=== PATIENT | female | born 1950 | race Asian ===

== ENCOUNTER 2018-05-23 18:01 | Emergency (ER) | payer OTHER ==
[~2018-05-23 18:01] MED LIST: ALLOPURINOL100 MG PO; ATIVAN0.5 M1 PO; CLONIDINE0.1 M1 PO; METOPROLOL SUCC25 M1 PO; NITROSTAT0.4 MG SL; RENVELA800 M1 PO; SENSIPAR30 M1 PO; ZESTRIL20 MG PO; [UNRECOGNIZED DRUG - OTHER]; [UNRECOGNIZED DRUG - OTHER] PO
[2018-05-23 18:16] VITALS: Ht 162.6 cm
[2018-05-23 19:52] VITALS: BP 195/94
== END 2018-05-23 19:52 | disposition home or self-care (01) ==
LOC: ED 18:01
DX: T82.838A Hemorrhage due to vascular prosthetic devices, implants and grafts, initial encounter (principal); I12.0 Hypertensive chronic kidney disease with stage 5 chronic kidney disease or end stage renal disease; N18.6 End stage renal disease
CPT/HCPCS: J2001

== ENCOUNTER 2018-08-13 14:21 | Emergency (ER) | payer OTHER ==
[2018-08-13 14:34] VITALS: Ht 162.6 cm
[2018-08-13 14:46] LABS: PLATELET COUNT 278 x10^3mcL (130-400)
[2018-08-13 14:49] LABS: RED CELL DISTRIBUTION WIDTH 15.4 % (11.5-14.5)
[2018-08-13 15:19] LABS: BILIRUBIN TOTAL 0.68 mg/dL (0.20-1.00); CALCIUM 9.3 mg/dL (8.5-10.1); CARBON DIOXIDE 29.2 mmol/L (21-32); POTASSIUM SERUM 3.5 mmol/L (3.5-5.1)
[2018-08-13 15:30] LABS: TOTAL PROTEIN, SERUM 9.2 g/dL (6.4-8.2)
[2018-08-13 15:34] LABS: CREATININE SERUM 5.2 mg/dL (0.6-1.0)
[2018-08-13 16:40] VITALS: BP 169/78
== END 2018-08-13 16:15 | disposition home or self-care (01) ==
LOC: ED 14:21
PROVIDERS: Emergency Medicine
DX: E87.8 Other disorders of electrolyte and fluid balance, not elsewhere classified (principal); I12.0 Hypertensive chronic kidney disease with stage 5 chronic kidney disease or end stage renal disease; N18.6 End stage renal disease; Z99.2 Dependence on renal dialysis
CPT/HCPCS: J2405; J3010; Q0092

== ENCOUNTER 2018-10-27 08:53 | Emergency (ER) | payer OTHER ==
[~2018-10-27] VITALS: Ht 160 cm; Wt 89.4 kg
[2018-10-27 08:58] VITALS: Ht 160 cm; Wt 89.4 kg
[2018-10-27 09:55] LABS: UA SPECIFIC GRAVITY 1.015 (1.005-1.035); microscopic required? YES; urine erythrocyte 2+ (NEGATIVE)
[2018-10-27 10:36] VITALS: BP 155/78
== END 2018-10-27 10:36 | disposition home or self-care (01) ==
LOC: ED 08:53
PROVIDERS: Specialist
DX: N39.0 Urinary tract infection, site not specified (principal); I10 Essential (primary) hypertension
CPT/HCPCS: J0696

== ENCOUNTER 2019-01-12 14:53 | Inpatient (IN) | payer OTHER | END 2019-01-21 16:55 | disposition home or self-care (01) | LOC: ED 14:53 → DU 16:47 → MU 01-20 17:50 → ED 14:53 → DU 16:47 → MU 01-20 17:50 → ED 14:53 → DU 16:47 → MU 01-20 17:50 → ED 14:53 → DU 16:47 → ED 14:53 → DU 16:47 → ED 14:53 → DU 16:47 → ED 14:53 → DU 16:47 → ED 14:53 → DU 16:47 | DX: I25.110 Atherosclerotic heart disease of native coronary artery with unstable angina pectoris (principal); N18.6 End stage renal disease; N17.0 Acute kidney failure with tubular necrosis; E87.1 Hypo-osmolality and hyponatremia; I12.0 Hypertensive chronic kidney disease with stage 5 chronic kidney disease or end stage renal disease; N39.0 Urinary tract infection, site not specified; E83.41 Hypermagnesemia; B96.29 Other Escherichia coli [E. coli] as the cause of diseases classified elsewhere; E83.39 Other disorders of phosphorus metabolism; R74.0 Nonspecific elevation of levels of transaminase and lactic acid dehydrogenase [LDH]; Z99.2 Dependence on renal dialysis; Z79.82 Long term (current) use of aspirin; Z68.33 Body mass index [BMI] 33.0-33.9, adult ==

== ENCOUNTER 2019-03-18 02:20 | Emergency (ER) | payer OTHER ==
[~2019-03-18] VITALS: Ht 162.6 cm; Wt 83.1 kg
[~2019-03-18 02:20] MED LIST changes: +ASPIR 8181 MG PO; +CARVEDILOL3.125 M1; +CLINDAMYCIN HY150 M1 PO; +CLINDAMYCIN300 M1 PO; +KAPVAY0.1 MG; +LEVOFLOXACIN500 M1 PO; +LIPITOR80 MG PO; +METOPROLOL TART25 M1 PO; +NORVASC2.5 MG
[2019-03-18 04:05] LABS: BASOPHIL % 0.3 % (0-2); PLATELET COUNT 240 x10^3mcL (130-400)
[2019-03-18 04:06] LABS: RED CELL DISTRIBUTION WIDTH 16.4 % (11.5-14.5)
[2019-03-18 04:28] LABS: CALCIUM 9.7 mg/dL (8.5-10.1); CARBON DIOXIDE 23.9 mmol/L (21-32); CREATININE SERUM 11.5 mg/dL (0.6-1.0); POTASSIUM SERUM 4.4 mmol/L (3.5-5.1)
[2019-03-18 04:31] LABS: ALBUMIN 3.6 g/dL (3.4-5.0); BILIRUBIN TOTAL 0.43 mg/dL (0.20-1.00)
[2019-03-18 04:32] LABS: TOTAL PROTEIN, SERUM 8.4 g/dL (6.4-8.2)
[2019-03-18 06:00] VITALS: BP 151/66
== END 2019-03-18 06:00 | disposition home or self-care (01) ==
LOC: ED 02:20
PROVIDERS: Emergency Medicine
DX: N39.0 Urinary tract infection, site not specified (principal); I12.0 Hypertensive chronic kidney disease with stage 5 chronic kidney disease or end stage renal disease; N18.6 End stage renal disease; Z99.2 Dependence on renal dialysis
CPT/HCPCS: 36415; J7030

== ENCOUNTER 2019-10-15 06:04 | Inpatient (IN) | payer OTHER ==
[~2019-10-15] VITALS: Ht 162.6 cm; Wt 82.8 kg
[~2019-10-15 06:04] MED LIST changes: -CARVEDILOL3.125 M1; +CARVEDILOL3.125 M1 PO; -NORVASC2.5 MG; +NORVASC2.5 MG PO
[2019-10-15 06:08] VITALS: Ht 162.6 cm; Wt 82.8 kg
[2019-10-15 07:19] LABS: BILIRUBIN TOTAL 0.4 mg/dL (0.20-1.00); CALCIUM 8.3 mg/dL (8.5-10.1); CARBON DIOXIDE 27.3 mmol/L (21-32); POTASSIUM SERUM 4.7 mmol/L (3.5-5.1)
[2019-10-15 07:20] LABS: ALBUMIN 3.3 g/dL (3.4-5.0); CHOLESTEROL/HDL RATIO 4.7; CREATININE SERUM 6.9 mg/dL (0.6-1.0)
[2019-10-15 07:37] LABS: BASOPHIL % 0.3 % (0-2); PLATELET COUNT 194 x10^3mcL (130-400)
[2019-10-15] MEDS ORDERED: SENSIPAR30 M1 PO (08:16)
[2019-10-15] MEDS ORDERED: CALCIUM ACETAT667 M2 PO (08:17)
[2019-10-15] MEDS ORDERED: NATURE'S BLEND F1 MG PO (08:18)
[2019-10-15] MEDS ORDERED: RENA-VITE RX1 TAB PO (08:19)
[2019-10-15] MEDS ORDERED: ZESTRIL40 MG PO (08:19)
[2019-10-15] MEDS ORDERED: ZYLOPRIM100 MG PO (08:20)
[2019-10-15] MEDS ORDERED: DOCUSATE SODIU100 M1 PO (08:20)
[2019-10-15] MEDS ORDERED: GOOD SENSE PAI500 MG PO (08:21)
[2019-10-15] MEDS ORDERED: CLONIDINE HYDR0.1 M1 PO (08:22)
[2019-10-15] MEDS ORDERED: GOOD NEIGHBOR M25 MG PO (08:23)
[2019-10-15] MEDS ORDERED: CLONIDINE HCL0.2 MG PO (08:23)
[2019-10-15 10:33] VITALS: BP 147/60
[2019-10-15 13:36] VITALS: BP 148/65
== END 2019-10-15 15:50 | disposition left against medical advice (07) | DRG 313 ==
LOC: ED 06:04 → DU 07:44
PROVIDERS: Emergency Medicine; ADMIT Student in an Organized Health Care Education/Training Program
DX: R07.9 Chest pain, unspecified (principal); N18.6 End stage renal disease; I12.0 Hypertensive chronic kidney disease with stage 5 chronic kidney disease or end stage renal disease; Z99.2 Dependence on renal dialysis; Z79.82 Long term (current) use of aspirin; Z53.21 Procedure and treatment not carried out due to patient leaving prior to being seen by health care provider
CPT/HCPCS: 83880; G0378; Q0092